=== PATIENT | female | born 1990 | race Caucasian/White ===

== ENCOUNTER 2020-09-14 13:32 | Emergency (ER) | payer BC ==
[~2020-09-14] VITALS: Ht 157.5 cm; Wt 87.3 kg
[2020-09-14] MEDS ORDERED: PRILOSEC OTC20 MG PO (13:56)
[2020-09-14] MEDS ORDERED: CLARITIN LIQUI-10 MG PO (13:57)
[2020-09-14] MEDS ORDERED: PHENTERMINE HYD30 MG PO (13:57)
[2020-09-14] MEDS ORDERED: BIRTH CONTROL (13:58)
[2020-09-14 17:08] VITALS: BP 145/80
== END 2020-09-14 17:08 | disposition home or self-care (01) ==
LOC: ED 13:32
DX: S61.210A Laceration without foreign body of right index finger without damage to nail, initial encounter (principal); K21.9 Gastro-esophageal reflux disease without esophagitis; Z88.1 Allergy status to other antibiotic agents; W23.1XXA Caught, crushed, jammed, or pinched between stationary objects, initial encounter; Y92.009 Unspecified place in unspecified non-institutional (private) residence as the place of occurrence of the external cause

== ENCOUNTER 2024-03-04 08:57 | Emergency (ER) | payer BC ==
[~2024-03-04 08:57] MED LIST: BIRTH CONTROL; CLARITIN LIQUI-10 MG PO; PHENTERMINE HYD30 MG PO; PRILOSEC OTC20 MG PO
[2024-03-04] MEDS ORDERED: levETIRAcetam 500 MG TAB PO ONE (10:28)
[2024-03-04] MEDS ORDERED: NS 1,000 ML IV ONE (10:28)
[2024-03-04] MEDS ORDERED: Cetirizine 10 MG TAB PO ONE (10:28)
[2024-03-04] MEDS ORDERED: Ketorolac 30 MG/ML VIAL IV ONE (10:28)
[2024-03-04] MEDS ORDERED: Promethazine 50 MG/ML 1 ML VIAL IM ONE (10:28)
[2024-04-24 10:40] LABS: BASO # 0.04 K/mm3 (0.02-0.10); HEMATOCRIT 42.4 % (37.0-47.0); LYMPH# 1.32 K/mm3 (1.50-4.00); MEAN CELL VOLUME 89 fl (78-100); MEAN CORPUSCULAR HEMOGLOBIN 29 pg (27-31); MEAN CORPUSCULAR HGB CONC 33 g/dL (33-37); MEAN PLATELET VOLUME 10.2 fl (7.4-10.4); NEU # 7.76 K/mm3 (1.40-6.50); PLATELET COUNT 224 K/mm3 (130-400); RED BLOOD COUNT 4.76 M/mm3 (4.10-5.30); RED CELL DISTRIBUTION WIDTH 12.6 % (11.5-14.5); WHITE BLOOD COUNT 9.9 K/mm3 (4.8-10.8)
[2024-04-24 10:48] LABS: ALBUMIN 3.9 g/dL (3.5-5.0); ALT/SGPT 18 U/L (0-55); AST-SGOT 17 U/L (5-34); CALCIUM 8.9 mg/dL (8.3-10.5); CARBON DIOXIDE 17 mmol/L (22-29); GLUCOSE 117 mg/dL (65-105); SODIUM 137 mmol/L (136-145); TOTAL BILIRUBIN 0.4 mg/dL (0.2-1.2); TOTAL PROTEIN 6.7 g/dL (6.4-8.3)
[2024-04-24 10:58] LABS: PH-URINE 5.5 (5.0 - 8.0); URINE APPEARANCE CLEAR (CLEAR); URINE BILIRUBIN NEGATIVE (NEGATIVE); URINE BLOOD NEGATIVE (NEGATIVE); URINE COLOR YELLOW (YELLOW); URINE GLUCOSE NEGATIVE (NEGATIVE); URINE KETONE NEGATIVE (NEGATIVE); URINE LEUKOCYTE ESTERASE NEGATIVE (NEGATIVE); URINE NITRATE NEGATIVE (NEGATIVE); URINE PROTEIN(semi-quant) NEGATIVE (NEGATIVE)
== END 2024-03-04 11:58 | disposition home or self-care (01) ==
LOC: ED 08:57
PROVIDERS: Family Medicine
DX: R56.9 Unspecified convulsions (principal)
CPT/HCPCS: J1885; J2550; J7030

== ENCOUNTER → 2024-03-15 | Outpatient (CLI) | payer BC ==
[~2024-03-15] MED LIST changes: +Gadoterate 20 ML VIAL IV ONE; +NS 100 ML IV ONE
== END ==
LOC: RAD 08:30
DX: J32.0 Chronic maxillary sinusitis (principal); G40.909 Epilepsy, unspecified, not intractable, without status epilepticus
CPT/HCPCS: A9575